=== PATIENT | male | born 1950 ===

== ENCOUNTER → 2018-02-10 13:33 | Outpatient (REF) | payer MEDICARE, SELFPAY ==
[2018-02-10 14:04] LABS: Alanine Aminotransferase 22 IU/L (21-72); Albumin 4.2 g/dL (3.5-5.0); Albumin Globulin Ratio 1.2 (1.0-2.8); Alkaline Phosphatase 80 U/L (38-126); Aspartate Aminotransferase 23 IU/L (17-59); BUN Creatinine Ratio 16.3 (6-22); Bilirubin Total 0.7 mg/dL (0.2-1.3); Blood Urea Nitrogen 13 mg/dL (9-20); Calcium 9.9 mg/dL (8.4-10.2); Carbon Dioxide 27 mmol/L (22-32); Chloride 109 mmol/L (98-107); Cholesterol 209 mg/dL (140-199); Estimated Glomerular Filt Rate > 60.0 mL/min (>60); Globulin 3.4 g/dL (1.7-4.1); Glucose 94 mg/dL (80-110); HDL Cholesterol 57 mg/dL (40-60); HEMOLYSIS 16 (0-50); LDL Cholesterol Calculated 140 mg/dL (<100); Potassium 4.5 mmol/L (3.4-5.1); Sodium 147 mmol/L (137-145); Total Protein 7.6 g/dL (6.3-8.2); Triglycerides 59 mg/dL (35-150)
== END ==
LOC: LAB 13:33
PROVIDERS: Visit Provider Family Medicine
DX: Z12.5 Encounter for screening for malignant neoplasm of prostate (principal)
CPT/HCPCS: 36415; 80053; 80061; 84153

== ENCOUNTER → 2018-04-23 19:04 | Outpatient (REF) | payer MEDICARE, SELFPAY ==
[2018-04-23 19:43] LABS: Estimated Glomerular Filt Rate > 60.0 mL/min (>60)
== END ==
LOC: LAB 19:04
PROVIDERS: Visit Provider Family Medicine
DX: R31.9 Hematuria, unspecified (principal)
CPT/HCPCS: 36415; 82565; 87077; 87086

== ENCOUNTER → 2018-06-02 13:51 | Outpatient (REF) | payer MEDICARE, SELFPAY ==
[2018-06-02 14:21] LABS: Cholesterol 226 mg/dL (140-199); Triglycerides 97 mg/dL (35-150)
[2018-06-02 15:09] LABS: HDL Cholesterol 55 mg/dL (40-60); LDL Cholesterol Calculated 152 mg/dL (<100)
== END ==
LOC: LAB 13:51
PROVIDERS: Visit Provider Family Medicine
DX: N39.0 Urinary tract infection, site not specified (principal); E78.5 Hyperlipidemia, unspecified
CPT/HCPCS: 36415; 80061; 87077; 87086; 87186